=== PATIENT | female | born 1960 | race Caucasian/White ===

== ENCOUNTER 2023-02-11 19:35 | Emergency (ER) | payer MEDICARE, OTHER ==
[~2023-02-11] VITALS: Ht 175.3 cm; Wt 77.1 kg
--- NOTE | 2023-02-11 19:42 | NUR ---
ARRIVAL PT AMBULATORY INTO ER WITH NO DISTRESS ON RA. PT REPORTS SHE WAS CATFISHING AND NOW HAS HEAT AND SWELLING TO TOP OF RIGHT HAND AND WRIST AND ALSO LARGE AREA OF HEAT AND SWELLING TO LEFT THIGH. NO PAIN OR ITCHING REPORTED. HISTORY AND STATUS OBTAINED. VS AND ASSESSMENT COMPLETE CHARTED. DR GUAJARDO NOTIFIED OF PT ARRIVAL
[2023-02-11 19:56] VITALS: BP 144/84; PULSE 96; RESP 18; TEMP 98.2; O2SAT 98
[2023-02-11] MEDS ORDERED: BENADRYL IV STA (20:12)
[2023-02-11] MEDS ORDERED: EPINEPHrine SQ STA (20:12)
[2023-02-11] MEDS ORDERED: SOLU-MEDROL IV STA (20:12)
[2023-02-11] MEDS ORDERED: PEPCID IV STA (20:12)
[2023-02-11] MEDS ORDERED: BENADRYL ONE (20:24)
[2023-02-11] MEDS ORDERED: SOLU-MEDROL ONE (20:24)
[2023-02-11 20:28] LABS: BASOPHIL % 0.2 % (0.0-0.2); EOSINOPHIL # 0.2 10^3/uL (0.0-0.2); EOSINOPHIL % 3.4 % (0.0-5.0); LYMPHOCYTES # 1.36 10^3/uL1 (1.0-4.8); LYMPHOCYTES % 28.6 % (24.0-44.0); MONOCYTES # 0.3 10^3/uL (0.3-0.8); MONOCYTES % 6.9 % (5.0-12.0); NEUTROPHIL # 2.9 10^3/uL (1.8-7.7); NEUTROPHILS % 60.7 % (41.0-85.0); PLATELET COUNT 251 10^3/uL (150-400); RED CELL DISTRIBUTION WIDTH 13.7 % (11.5-14.5)
--- NOTE | 2023-02-11 20:36 | ER.PDOC ---
General Chief Complaint: Skin Rash/Abscess Stated Complaint: POSIBLE ALLERGIC REACTION Time seen by MD: 20:34 Source: patient Exam Limitations: no limitations History of Present Illness Initial Comments Possible allergic reaction for 2 days. Right hand swollen and a large whelp of the left thigh for 2 days. This started after fishing. No fever or chills. Severity: moderate Associated Symptoms: skin rash Identified Cause: possibly Vital Signs First Vital Signs Date Time Temp Pulse Resp B/P (MAP) Pulse Ox O2 Delivery O2 Flow Rate FiO2 02/11/23 19:56 98.2 96 18 02/11/23 19:56 144/84 (104) 98 Room Air* 0 21 Last Vital Signs Date Time Temp Pulse Resp B/P (MAP) Pulse Ox O2 Delivery O2 Flow Rate FiO2 02/11/23 21:16 98.2 99 18 137/55 (82) 98 Room Air* 0 21 Past Medical History Medical History: cancer, thyroid disease, other Surgical History: other Family History Significant Family History: no pertinent family hx Social History Smoking: non-smoker Alcohol Use: none Drug Use: none Constitutional: no symptoms reported EENTM: no symptoms reported Respiratory: no symptoms reported Cardiovascular: no symptoms reported Gastrointestinal: no symptoms reported Musculoskeletal: see HPI Skin: see HPI All Other Systems: Reviewed and Negative Physical Exam General Appearance: alert, no distress HEENT: ENT nml inspection, pharynx, voice nml Skin: urticaria (Left upper lateral thigh) Extremities: other (Right hand mildly swollen and warm to touch, no redness or erythema) Neck: nml inspection Respiratory: no resp. distress, breath sounds nml CVS: reg. rate & rhythm, heart sounds nml Abdomen: non-tender, no organomegaly NEURO/PSYCH: oriented x 3, CN's nml as tested, motor nml, sensation nml, mood/affect nml Results/Orders Results/Orders Orders - ASHKAN GUAJARDO MD Cbc With Auto Diff (02/11/23 20:12) Comprehensive Metabolic Panel (02/11/23 20:12) Procalcitonin (02/11/23 20:12) Lactic Acid(Ml) (02/11/23 20:12) Famotidine/Pf (Pepcid) (02/11/23 20:12) Diphenhydramine Hcl (Benadryl) (02/11/23 20:12) Methylprednisolone Sod Succ (Solu-Medrol (02/11/23 20:12) Epinephrine (Epinephrine) (02/11/23 20:12) Diphenhydramine Hcl (Benadryl) (02/11/23 20:24) Methylprednisolone Sod Succ (Solu-Medrol (02/11/23 20:24) Vital Signs Date Time Temp Pulse Resp B/P (MAP) Pulse Ox O2 Delivery O2 Flow Rate FiO2 02/11/23 21:16 98.2 99 18 137/55 (82) 98 Room Air* 0 21 02/11/23 19:56 98.2 96 18 98 02/11/23 19:56 98.2 96 18 144/84 (104) 98 Room Air* 0 21 02/11/23 19:56 98.2 96 18 Administered Medications Medications (Trade) Dose Ordered Sig/Ayesha Route PRN Reason Start Time Stop Time Status Last Admin Dose Admin Diphenhydramine HCl (Benadryl) 50 mg STAT STAT IV 02/11/23 20:12 02/11/23 20:15 DC 02/11/23 20:29 50 MG Epinephrine HCl (EPINEPHrine) 0.3 mg STAT STAT SQ 02/11/23 20:12 02/11/23 20:15 DC 02/11/23 20:36 0.3 MG Famotidine (Pepcid) 20 mg STAT STAT IV 02/11/23 20:12 02/11/23 20:15 DC 02/11/23 20:29 20 MG Methylprednisolone Sodium Succinate (Solu-Medrol) 125 mg STAT STAT IV 02/11/23 20:12 02/11/23 20:15 DC 02/11/23 20:29 125 MG Laboratory Tests Test 02/11/23 20:18 White Blood Count 4.8 10^3/uL (4.5-11.0) Red Blood Count 4.24 10^6/uL (4.00-5.20) Hemoglobin 12.7 g/dL (12.0-15.0) Hematocrit 38.7 % (36.0-46.0) Mean Corpuscular Volume 91.3 fL (78-100) Mean Corpuscular Hemoglobin 30.0 pg (26-34) Mean Corpuscular Hemoglobin Concent 32.8 g/dL (33-36.5) L Red Cell Distribution Width 13.7 % (11.5-14.5) Platelet Count 251 10^3/uL (150-400) Mean Platelet Volume 9.6 fL (7.8-11.0) Neutrophils (%) (Auto) 60.7 % (41.0-85.0) Lymphocytes (%) (Auto) 28.6 % (24.0-44.0) Monocytes (%) (Auto) 6.9 % (5.0-12.0) Neutrophils # (Auto) 2.9 10^3/uL (1.8-7.7) Lymphocytes # (Auto) 1.36 10^3/uL1 (1.0-4.8) Monocytes # (Auto) 0.3 10^3/uL (0.3-0.8) Absolute Immature Granulocyte (auto 0.01 10^3 u/L (0-2) Absolute Eosinophils (auto) 0.2 10^3/uL (0.0-0.2) Immature Granulocytes % 0.20 % (0.00-0.50) Eosinophils % 3.4 % (0.0-5.0) Basophils % 0.2 % (0.0-0.2) Basophils # 0.0 10^3/uL (0.0-0.1) Sodium Level 140 mmol/L (132-145) Potassium Level 3.8 mmol/L (3.6-5.2) Chloride Level 104.0 mmol/L (96-109) Carbon Dioxide Level 25.9 mmol/L (20.0-32) Anion Gap 13.9 Blood Urea Nitrogen 12 mg/dL (7-18) Creatinine 0.97 mg/dL (0.59-1.40) Estimated GFR () 70.9 (>/=60) Est GFR (CKD-EPI)(Non-Afr Brazilian) 58.6 (>/=60) BUN/Creatinine Ratio 12.0 (10.0-20.0) Glucose Level 106 mg/dL (74-106) Lactic Acid Level 1.3 mmol/L (0.5-1.9) Calcium Level 9.0 mg/dL (8.4-10.5) Total Bilirubin 0.5 mg/dL (0.2-1.0) Aspartate Amino Transferase (AST) 33 U/L (0-35) Alanine Aminotransferase (ALT) 25 U/L (12-78) Alkaline Phosphatase 61 U/L (50-136) Total Protein 7.5 g/dL (6.4-8.2) Albumin 4.2 g/dL (3.4-5.0) Globulin 3.3 Albumin/Globulin Ratio 1.272 Procalcitonin < 0.05 ng/mL (0.05-0.5) L Progress Progress CBC, chemistry, lactate and procalcitonin are normal. Patient received EpiPen, Benadryl, Pepcid and Solumedrol. Rash is almost fading away and right hand looks much better. Even though labs are normal, I will prophylax her with oral antibiotic for infection of the right hand that is mildly swollen and warm. I discussed this with the patient and he voices understanding. He is she is happy and agreeable with the plan. ER DEPART Departure Time of Disposition: 21:24 Disposition: 01 HOME / SELF CARE / HOMELESS Impression: Primary Impression: Acute allergic reaction Additional Impression: Urticaria Condition: Improved Referrals: PCP,UNKNOWN (PCP) PRIMARY CARE PROVIDER Additional Instructions: EpiPen Prednisone Pepcid Benadryl Keflex Follow-up with your PCP in 2 to 3 days Return to ED if worsening symptoms or concerns Duration or Time Spent with Pa: 30 min Problem Qualifiers Primary Impression: Acute allergic reaction Encounter type: initial encounter Qualified Codes: T78.40XA - Allergy, unspecified, initial encounter ASHKAN GUAJARDO MD Feb 11, 2023 20:36
[2023-02-11 20:47] LABS: CARBON DIOXIDE 25.9 mmol/L (20.0-32)
[2023-02-11 21:16] VITALS: BP 137/55; PULSE 99; RESP 18; TEMP 98.2; O2SAT 98
== END 2023-02-11 21:32 | disposition home or self-care (01) ==
LOC: ER 19:35
DX: L50.0 Allergic urticaria (principal); E07.9 Disorder of thyroid, unspecified; Z85.9 Personal history of malignant neoplasm, unspecified
CPT/HCPCS: 99284; 96374; 96375; 96372; 80053; 85025; 36415; 83605; 84145; J1200; J2930